=== PATIENT | female | born 1985 | race Two or more races ===

== ENCOUNTER 2018-12-24 05:11 | Inpatient (IN) | payer OTHER ==
[~2018-12-24] VITALS: Ht 167.6 cm; Wt 3.2 kg
== END 2018-12-26 13:20 | disposition home or self-care (01) | DRG 785 ==
LOC: LDR 05:11 → O/R 08:33 → OB/GYN 10:15
PROVIDERS: ADMIT Specialist
PROC: 4A1HXCZ Monitoring of Products of Conception, Cardiac Rate, External Approach (ICD-10-PCS; 2018-12-24)
PROC: 0UB70ZZ Excision of Bilateral Fallopian Tubes, Open Approach (ICD-10-PCS; 2018-12-24)
PROC: 10D00Z1 Extraction of Products of Conception, Low, Open Approach (ICD-10-PCS; principal; 2018-12-24 07:00)
DX: O34.211 Maternal care for low transverse scar from previous cesarean delivery (principal); O75.82 Onset (spontaneous) of labor after 37 completed weeks of gestation but before 39 completed weeks gestation, with delivery by (planned) cesarean section; O82 Encounter for cesarean delivery without indication; Z30.2 Encounter for sterilization; Z37.0 Single live birth; Z3A.37 37 weeks gestation of pregnancy